=== PATIENT | male | born 2000 | race Caucasian/White ===

== ENCOUNTER 2021-03-16 21:42 | Emergency (ER) | payer BC ==
[2021-03-16] MEDS ORDERED: predniSONE 20 MG TAB ONE (22:07)
[2021-03-16] MEDS ORDERED: diphenhydrAMINE 25 MG CAP ONE (22:08)
[2021-03-16] MEDS ORDERED: Famotidine 20 MG TAB PO SCH (22:15)
== END 2021-03-16 23:30 | disposition home or self-care (01) ==
LOC: CSHERS 21:42
DX: L50.0 Allergic urticaria (principal)
CPT/HCPCS: 99283; J7512